=== PATIENT | male | born 1970 | race Caucasian/White ===

== ENCOUNTER 2016-11-25 16:49 | Observation (INO) | payer SELFPAY ==
[2016-11-25] MEDS ORDERED: PRINIVIL20 M1 PO (16:58)
[2016-11-25] MEDS ORDERED: TOPROL XL50 M1 PO (16:59)
[2016-11-25] MEDS ORDERED: HYDROCHLOROTHIA25 M1 PO (16:59)
[2016-11-25] MEDS ORDERED: OMEPRAZOLE20 M3 PO (17:00)
[2016-11-25] MEDS ORDERED: ASPIRIN325 M3 PO (17:01)
[2016-11-26 02:48] LABS: CHOLESTEROL 228 mg/dl (120-200); HDL CHOLESTEROL 30 mg/dl (40-60); VLDL 95 mg/dl (0-30)
[2016-11-26 02:49] LABS: TRIGLYCERIDES 474 mg/dl (<149)
[2016-11-26] MEDS ORDERED: LOVASTATIN40 M2 PO (15:49)
== END 2016-11-26 16:36 ==
LOC: CAR1 16:49
PROVIDERS: Physician Assistant; ADMIT Internal Medicine Cardiovascular Disease
DX: R07.9 Chest pain, unspecified (principal); I10 Essential (primary) hypertension; F17.290 Nicotine dependence, other tobacco product, uncomplicated; R55 Syncope and collapse; Z79.82 Long term (current) use of aspirin; Z79.899 Other long term (current) drug therapy; Z98.52 Vasectomy status
CPT/HCPCS: A9500; G0378; J2785